=== PATIENT | male | born 1960 | race African-American/Black ===

== ENCOUNTER 2018-08-17 11:00 | Emergency (ER) | payer BC ==
[~2018-08-17] VITALS: Ht 170.2 cm; Wt 68.0 kg
[2018-08-17 13:00] VITALS: BP 129/90
== END 2018-08-17 13:20 | disposition home or self-care (01) ==
LOC: ER 11:18
DX: S61.211A Laceration without foreign body of left index finger without damage to nail, initial encounter (principal); X58.XXXA Exposure to other specified factors, initial encounter; Y93.89 Activity, other specified; Y92.89 Other specified places as the place of occurrence of the external cause; Y99.8 Other external cause status; Z98.890 Other specified postprocedural states
CPT/HCPCS: 99283

== ENCOUNTER 2020-07-04 11:18 | Emergency (ER) | payer BC ==
[~2020-07-04] VITALS: Ht 165.1 cm; Wt 75.0 kg
[2020-07-04 11:48] VITALS: BP 113/76
== END 2020-07-04 12:30 | disposition home or self-care (01) ==
LOC: ER 11:18
DX: D17.79 Benign lipomatous neoplasm of other sites (principal)
CPT/HCPCS: 99281